=== PATIENT | male | born 1995 | race Hispanic/Latino ===

== ENCOUNTER 2021-05-10 08:06 | Emergency (ER) | payer SELFPAY ==
[2021-05-10] MEDS ORDERED: ONDANSETRON 4 MG/2 ML VIAL ONE (08:29)
[2021-05-10] MEDS ORDERED: KETOROLAC 30 MG/ML INJ ONE (08:30)
[2021-05-10] MEDS ORDERED: NA CHLORIDE 0.9% 1,000 ML ONE (08:30)
[2021-05-10 08:31] LABS: Absolute Lymphocytes (CBC) 0.6 K/uL (0.7-4.9); Hematocrit 46.6 % (39.6-49.0); Lymphocytes % 4.4 % (15.3-44.8); MPV 8.2 fL (7.6-11.3); RBC Red Blood Cell Count 5.31 M/uL (4.33-5.43)
[2021-05-10 08:49] LABS: Albumin 4.4 g/dL (3.4-5.0); Bilirubin Total 0.9 mg/dL (0.2-1.0); Potassium 4.1 mmol/L (3.5-5.1); Protein, Total 7.9 g/dL (6.4-8.2)
--- NOTE | 2021-05-10 09:29 | RAD REPORT ---
EXAM DESCRIPTION: CT - Abdomen Pelvis W Contrast - 05/10/2021 9:04 am CLINICAL HISTORY: Abdominal pain COMPARISON: none. TECHNIQUE: Computed axial tomography of the abdomen pelvis was obtained. 100 cc Isovue-300 was admin istered intravenously. Oral contrast was not requested which limits evaluation of bowel and appendix. All CT scans are performed using dose optimization technique as appropriate and may include automated exposure control or mA/KV adjustment according to patient size. FINDINGS: The liver, spleen, pancreas, adrenal and kidneys appear unremarkable. There is no evidence of diverticulitis. An abnormal appendix is not visualized although evaluation is somewhat limited. There is fluid throughout nondilated small bowel IMPRESSION: Fluid throughout nondilated small bowel may indicate an enteritis
--- NOTE | 2021-05-10 09:34 | ER ---
Nurse's Notes [facility] Name: Juan José Bhakta Age: 25 yrs Sex: Male : 1995 Arrival Date: 05/10/2021 Time: 08:08 Bed 19 Private MD: Diagnosis: Enteritis Presentation: 05/10 08:11 Chief complaint: Patient states: woke up with abd pain with nausea/vomiting/ diarrhea. aa5 Coronavirus screen: diarrhea, nausea, vomiting. Ebola Screen: No symptoms or risks identified at this time. Initial Sepsis Screen: Does the patient meet any 2 criteria? No. Patient's initial sepsis screen is negative. Does the patient have a suspected source of infection? No. Patient's initial sepsis screen is negative. Risk Assessment: Do you want to hurt yourself or someone else? Patient reports no desire to harm self or others. Onset of symptoms was May 10, 2021. 08:11 Method Of Arrival: Ambulatory aa5 08:11 Acuity: NAKUL 3 aa5 Historical: - Allergies: 08:11 No Known Allergies; aa5 - PMHx: 08:11 Asthma; aa5 - PSHx: 08:11 nose; aa5 - Immunization history:: Adult Immunizations up to date. - Social history:: Smoking status: Reported history of juuling and/or vaping. Screenin:47 Abuse screen: Denies threats or abuse. Denies injuries from another. Nutritional ab2 screening: No deficits noted. Tuberculosis screening: No symptoms or risk factors identified. Fall Risk None identified. Assessment: 08:45 General: Appears in no apparent distress. uncomfortable, Behavior is calm, cooperative, ab2 appropriate for age. Pain: Complains of pain in right lower quadrant and left lower quadrant Pain currently is 8 out of 10 on a pain scale. Neuro: Level of Consciousness is awake, alert, obeys commands, Oriented to person, place, time, situation, Appropriate for age Truck Unloader are equal bilaterally Moves all extremities. Gait is steady, Speech is normal. Cardiovascular: No deficits noted. Denies chest pain, shortness of breath, Heart tones S1 S2 present Patient's skin is warm and dry. Respiratory: Airway is patent Respiratory effort is even, unlabored, Respiratory pattern is regular, symmetrical, Breath sounds are clear bilaterally. GI: Abdomen is round non-distended, Bowel sounds present X 4 quads. Abdomen is tender to palpation X 4 quads. Reports diarrhea, intolerance of fluids, intolerance of food, nausea, vomiting. : No deficits noted. No signs and/or symptoms were reported regarding the genitourinary system. Denies burning with urination. EENT: No deficits noted. No signs and/or symptoms were reported regarding the EENT system. Derm: Skin is intact, is healthy with good turgor, Skin is pink, warm \T\ dry. Musculoskeletal: No deficits noted. No signs and/or symptoms reported regarding the musculoskeletal system. Range of motion: intact in all extremities. Vital Signs: 08:12 BP 110 / 66; Pulse 70; Resp 16 S; Temp 99.1(TE); Pulse Ox 100% on R/A; Weight 65.77 kg aa5 (R); Height 5 ft. 5 in. (165.10 cm) (R); Pain 8/10; 08:46 BP 106 / 67; Pulse 73; Resp 16; Pulse Ox 100% on R/A; ab2 09:56 BP 111 / 71; Pulse 76; Resp 16; Pulse Ox 99% on R/A; ab2 08:12 Body Mass Index 24.13 (65.77 kg, 165.10 cm) aa5 ED Course: 08:08 Patient arrived in ED. ds1 08:08 Sophia Renee FNP-C [facility]. kb 08:08 Luis Leal DO is Attending Physician. kb 08:11 Triage completed. aa5 08:11 Arm band placed on. aa5 08:14 Juan Pratt is Primary Nurse. ab2 08:20 Inserted saline lock: 20 gauge in right antecubital area, using aseptic technique. ab2 Blood collected. 08:31 CBC with Diff Sent. ab2 08:31 CMP Sent. ab2 08:31 Lipase Sent. ab2 08:45 No provider procedures requiring assistance completed. ab2 08:47 Patient has correct armband on for positive identification. Bed in low position. Call ab2 light in reach. Side rails up X2. 09:04 CT Abd/Pelvis - IV Contrast Only In Process Unspecified. EDMS 09:57 IV discontinued, intact, bleeding controlled, No redness/swelling at site. Pressure ab2 dressing applied. Administered Medications: 08:30 Drug: NS 0.9% 1000 ml Route: IV; Rate: 1 bolus; Site: right antecubital; ab2 09:39 Follow up: Response: No adverse reaction ab2 08:30 Drug: Zofran (Ondansetron) 4 mg Route: IVP; Site: right antecubital; ab2 09:38 Follow up: Response: No adverse reaction ab2 08:30 Drug: Ketorolac 15 mg Route: IVP; Site: right antecubital; ab2 09:40 Follow up: Response: No adverse reaction ab2 09:38 Drug: Bentyl (dicyclomine) 20 mg Route: PO; ab2 09:41 Follow up: Response: No adverse reaction ab2 Outcome: 09:33 Discharge ordered by . delmer 09:56 Discharged to home ambulatory, with family. ab2 09:56 Condition: good 09:56 Discharge instructions given to patient, family, Instructed on discharge instructions, follow up and referral plans. medication usage, Demonstrated understanding of instructions, follow-up care, medications, Prescriptions given X 2. 09:57 Patient left the ED. ab2 Signatures: Dispatcher [employer] EDSophia Beasley, NAME PLATE STAMPER-C NAME PLATE STAMPER-CkAlisha Rodriguez ds1 Trixie Hawkins, RN RN aa5 Juan Pratt ab2
--- NOTE | 2021-05-10 09:34 | EDPHYS ---
Physician Documentation [facility] Name: Juan José Bhakta Age: 25 yrs Sex: Male : 1995 Arrival Date: 05/10/2021 Time: 08:08 Bed 19 Private MD: ED Physician Luis Leal HPI: 05/10 08:26 This 25 yrs old Male presents to ER via Ambulatory with complaints of kb Abdominal Pain, Vomiting. 08:26 The patient presents with abdominal pain that is diffuse. Onset: The symptoms/episode kb began/occurred this morning. The symptoms do not radiate. Associated signs and symptoms: Pertinent positives: nausea, vomiting, and diarrhea, Pertinent negatives: fever. The symptoms are described as constant. Modifying factors: The symptoms are alleviated by nothing, the symptoms are aggravated by nothing. Severity of pain: At its worst the pain was moderate in the emergency department the pain is unchanged. The patient has not experienced similar symptoms in the past. The patient has not recently seen a physician. Pt reports abd pain and nausea upon waking that was followed by vomiting and diarrhea. Historical: - Allergies: 08:11 No Known Allergies; aa5 - PMHx: 08:11 Asthma; aa5 - PSHx: 08:11 nose; aa5 - Immunization history:: Adult Immunizations up to date. - Social history:: Smoking status: Reported history of juuling and/or vaping. ROS: 08:25 Constitutional: Negative for fever, chills, and weight loss. kb 08:25 Abdomen/GI: Positive for abdominal pain, nausea, vomiting, and diarrhea, Negative for constipation, abdominal cramps, abdominal distension. 08:25 All other systems are negative. Exam: 08:25 Constitutional: This is a well developed, well nourished patient who is awake, alert, kb and in no acute distress. Head/Face: Normocephalic, atraumatic. ENT: Moist Mucous membranes Cardiovascular: Regular rate and rhythm with a normal S1 and S2. No gallops, murmurs, or rubs. No pulse deficits. Respiratory: Respirations even and unlabored. No increased work of breathing. Talking in full sentences Skin: Warm, dry with normal turgor. Normal color. MS/ Extremity: Pulses equal, no cyanosis. Neurovascular intact. Full, normal range of motion. Neuro: Awake and alert, GCS 15, oriented to person, place, time, and situation. Moves all extremities. Normal gait. Psych: Awake, alert, with orientation to person, place and time. Behavior, mood, and affect are within normal limits. 08:25 Abdomen/GI: Inspection: abdomen appears normal, Bowel sounds: normal, in all quadrants, Palpation: soft, in all quadrants, mild abdominal tenderness, in the left upper quadrant and left lower quadrant, moderate abdominal tenderness, in the right upper quadrant and right lower quadrant. Vital Signs: 08:12 BP 110 / 66; Pulse 70; Resp 16 S; Temp 99.1(TE); Pulse Ox 100% on R/A; Weight 65.77 kg aa5 (R); Height 5 ft. 5 in. (165.10 cm) (R); Pain 8/10; 08:46 BP 106 / 67; Pulse 73; Resp 16; Pulse Ox 100% on R/A; ab2 09:56 BP 111 / 71; Pulse 76; Resp 16; Pulse Ox 99% on R/A; ab2 08:12 Body Mass Index 24.13 (65.77 kg, 165.10 cm) aa5 MDM: 08:12 Patient medically screened. kb 08:25 Data reviewed: vital signs, nurses notes. Data interpreted: Pulse oximetry: on room air kb is 100 %. Interpretation: normal. 09:31 Counseling: I had a detailed discussion with the patient and/or guardian regarding: the kb historical points, exam findings, and any diagnostic results supporting the discharge/admit diagnosis, lab results, radiology results, the need for outpatient follow up, a family practitioner, to return to the emergency department if symptoms worsen or persist or if there are any questions or concerns that arise at home. 05/10 08:13 Order name: CBC with Diff kb 05/10 08:13 Order name: CMP; Complete Time: 09:15 kb 05/10 08:13 Order name: Lipase; Complete Time: 09:15 kb 05/10 08:13 Order name: CT Abd/Pelvis - IV Contrast Only; Complete Time: 09:31 kb 05/10 09:53 Order name: CBC Smear Scan EDMS 05/10 08:13 Order name: IV Saline Lock; Complete Time: 08:30 kb 05/10 08:13 Order name: Labs collected and sent; Complete Time: 08:30 kb 05/10 09:31 Order name: PO challenge; Complete Time: 09:38 kb Administered Medications: 08:30 Drug: NS 0.9% 1000 ml Route: IV; Rate: 1 bolus; Site: right antecubital; ab2 09:39 Follow up: Response: No adverse reaction ab2 08:30 Drug: Zofran (Ondansetron) 4 mg Route: IVP; Site: right antecubital; ab2 09:38 Follow up: Response: No adverse reaction ab2 08:30 Drug: Ketorolac 15 mg Route: IVP; Site: right antecubital; ab2 09:40 Follow up: Response: No adverse reaction ab2 09:38 Drug: Bentyl (dicyclomine) 20 mg Route: PO; ab2 09:41 Follow up: Response: No adverse reaction ab2 Disposition: 10:07 Co-signature as Attending Physician, Luis Leal DO I agree with the assessment and ms3 plan of care. Disposition Summary: 05/10/21 09:33 Discharge Ordered Location: Home kb Condition: Stable kb Diagnosis - Enteritis kb Followup: kb - With: Emergency Department - When: As needed - Reason: Worsening of condition Followup: kb - With: Private Physician - When: 2 - 3 days - Reason: Recheck today's complaints, Continuance of care, Re-evaluation by your physician Discharge Instructions: - Discharge Summary Sheet kb - Viral Gastroenteritis, Adult, [id number] kb Forms: - Medication Reconciliation Form kb - Work release form kb - Thank You Letter kb - Antibiotic Education kb - Prescription Opioid Use kb Prescriptions: - Zofran 4 mg Oral Tablet - take 1 tablet by ORAL route every 6 hours As needed; 20 tablet; Refills: 0, kb Product Selection Permitted - dicyclomine 20 mg Oral Tablet - take 1 tablet by ORAL route 4 times per day As needed; 20 tablet; Refills: 0, kb Product Selection Permitted Signatures: Dispatcher [employer] Sophia Ray, MARJORIE OROURKE-Trixie Rayo, RN RN aa5 Luis Leal DO DO ms3 Juan Pratt ab2
[2021-05-10] MEDS ORDERED: DICYCLOMINE HCL 10 MG CAP ONE (09:39)
[2021-05-10 09:53] LABS: Blood Morphology Comment NOT SEEN (NOT SEEN); Platelet Estimate ADEQ; White Blood Cell Scan OK (OK)
[2021-05-10 10:51] VITALS: TEMP 99.1
[2021-05-10 10:54] VITALS: BP 111/71; O2SAT 99
== END 2021-05-10 09:57 | disposition home or self-care (01) ==
LOC: ER 08:06
DX: K52.9 Noninfective gastroenteritis and colitis, unspecified (principal); R11.2 Nausea with vomiting, unspecified
CPT/HCPCS: 36415; 74177; 80053; 83690; 85025; 96374; 96375; 99284; J2405; J7030; Q9967